=== PATIENT | female | born 1985 | race Caucasian/White ===

== ENCOUNTER 2017-10-31 18:18 | Inpatient (IN) ==
[2017-11-01] MEDS ORDERED: Acetaminophen 325 MG Tablet PO PRN (01:09)
[2017-11-01] MEDS ORDERED: Aluminum/Magnesium/Simethacone Susp 30 ML UDC PO PRN (01:09)
[2017-11-01 07:08] LABS: Alanine Aminotransferase 25 U/L (10-53); Albumin 3.5 g/dL (3.4-5.0); Anion Gap 14 meq/L (5-15); Aspartate Aminotransferase 23 U/L (15-37); Blood Urea Nitrogen 6 mg/dL (7-18); Calcium 9.3 mg/dL (8.5-10.1); Carbon Dioxide 22.5 meq/L (21.0-32.0); Chloride 103 meq/L (98-107); Cholesterol 162 mg/dL (120-200); Glomerular Filtration Rate 77 mL/min (>89); Glucose,Random 92 mg/dL (74-106); Potassium 3.6 meq/L (3.5-5.1); Sodium 139 meq/L (136-145); Triglycerides 114 mg/dL (42-150)
[2017-11-01 07:18] LABS: Alkaline Phosphatase 125 U/L (45-117); Chol/HDL Ratio 2.43 Ratio; HDL Cholesterol 66.4 mg/dL (40.0-60.0); LDL Cholesterol,Calculated 73 mg/dL (0-99); Total Protein 7.8 g/dL (6.4-8.2)
[2017-11-01 11:35] LABS: Hemoglobin A1c 4.9 % (4.3-6.0)
--- NOTE | 2017-11-01 13:45 | P.HPPSY ---
Provisional Diagnosis Admission Date: October 31, 2017 23:50 [place] I.: Schizophrenia Competence Certification of Person's Competence To Provide Express and Informed Consent I have personally examined Navin Macias, a person being served at [facility] on, November 01, 2017 1344. Express and informed consent means consent voluntarily given in writing, by a competent person, after sufficient explanation and disclosure of the subject matter involved to enable the person to make a knowing and willful decision without any element of force, fraud, deceit, duress, or other form of constraint or coercion. This person is 18 years of age or older, is not now known to be incompetent to consent to treatment with a guardian advocate, and does not have a health care surrogate or proxy currently making medical treatment decisions. I have found this person to be one of the following: [xxx] Competent to provide express and informed consent, as defined above, for voluntary admission to this facility and is competent to provide express and informed consent for treatment. He/she has the consistent capacity to make well reasoned, willful, and knowing decisions concerning his or her medical or mental health treatment. The person fully and consistently understands the purpose of the admission for examination/placement and is fully capable of personally exercising all rights assured under [place] [] Incompetent to provide express and informed consent to voluntary admission, and this is incompetent to provide express and informed consent to treatment. The person must be transferred to involuntary status and a petition for a guardian advocate filed with the Circuit Court. [] Refusing to provide express and informed consent to voluntary admission but is competent to provide express and informed consent for treatment. The person must be discharged or transferred to involuntary status. Form shall be completed within 24 hours of a person's arrival at the receiving facility and filed in the clinical record of each person: 1. Admitted on a voluntary basis 2. Permitted to provide express and informed consent to his/her own treatment 3. Allowed to transfer from involuntary to voluntary status 4. Prior to permitting a person to consent to his or her own treatment after having been previously found incompetent to consent to treatment. History of Present Illness Capacity: Has capacity Chief Complaint: Juan act for suicide ideations and auditory hallucinations History of Present Illness: Patient is a 32-year-old woman, single, domiciled with parents, employed part-time, with past psychiatric history of schizophrenia, no prior psychiatric admissions as per patient, no prior suicide attempts or self injurious behavior, with no past medical history or substance use history who was brought in under Juan Act from hospital in [place] for auditory hallucinations for several weeks, noncompliance with medications, suicidal ideation and threats to parents with violence which patient was admitted to the inpatient psychiatry unit for further evaluation and management. Patient was found sitting day room, calm and cooperative, interviewed with nurse. 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 She states that recently the PROMOTIONAL ADVERTISING ASSISTANT at her clinic had reduced the dose to 400mg because she was "fearful" and had a "fear episode" for the past couple of days. She did not explain the fear but that she just felt fear in general, last being yesterday. She reprots that she had not had any change in sleep, energy, concentration, appetite and that her mood had been "ok" but reports AH commanding her to "slam the door" which she last reported two days ago. she denies any VH or delusions at this time. Family psychiatric history: deneis Past psychiatric history: previous psychiatric diagnosis of schizophrenia, denies prior psychiatric admissions, no prior suicide attempts or self injurious behavior. Reports outpatient psychiatrist, Dr. Ballesteros (since 2013), prior medication trials: Rixulti, Seroquel, Risperdal. Substance use history: denies Past medical history: denies Allergies: benadryl Social history: single, no children, domiciled with parents, no service , no access to firearms, no legal history. Collateral: Patient's father, Edwin Macias ([phone]) was contacted and reported that the patient had been on 800mg of Seroquel for some time and believes that the patient had stopped her medication on her own for several days and had "lost it". He states that the patient was noted to be very afraid , getting up from lying down to do jumping jacks, wanted to leave the house and was noted to be "hearing voices saying 'no I don't want to kill myself or my parents'" talking to her self. Treatment plan was reviewed. - Inpatient Certification I certify that the inpatient services were ordered in accordance with Medicare regulations governing the order. This includes certification that hospital inpatient services are reasonable and necessary and in the case of services not specified as inpatient-only under 42 CFR 419.22(n), that they are appropriately provided as inpatient services in accordance to with the 2-midnight benchmark under 43 CFR 412.3(e) I certify that inpatient psychiatric hospital services are medically necessary. Evaluation and treatment and/or diagnostic testing are expected to improve the patient's condition. The patient needs on a daily basis, active treatment furnished directly by or requiring the supervision of inpatient psychiatric facility personnel. Plans for Post Hospital Care: Home Review of Systems All other systems reviewed negative except as stated in HPI PMFSH - History History Provided By: Patient, Family Member - Tobacco History Second Hand Smoke Exposure: No Smoking Status: Never smoker - Alcohol History How Often Do You Have a Drink Containing Alcohol: Never - Substance Use History Substance History: No History of Abuse - Travel History Recent Travel in the [place] Within the Last 8 Weeks: No Recent Travel Out of the Country Within the Last 8 Weeks: No Quality Measures - Substance Abuse History Drug or alcohol use in the past 12 months: denies - Patient Strengths Patient's strengths (minimum of 2): verbal and communicative Medications and Allergies Active Medications: Active Medications Acetaminophen (Tylenol) 650 mg PO Q4H PRN PRN Reason: Pain 1-5 or Temp >101F Al Hydrox/Mg Hydrox/Simethicone (Mag-Al Plus Susp Liq) 30 ml PO Q6H PRN PRN Reason: DYSPEPSIA Al Hydroxide/Mg Hydroxide (Milk Of Magnesia Liq) 30 ml PO Q12H PRN PRN Reason: Mild Constipation Lorazepam (Ativan) 1 mg PO Q6H PRN PRN Reason: SEE LABEL COMMENTS Lorazepam (Ativan Inj) 1 mg IM Q6H PRN PRN Reason: SEE LABEL COMMENTS Nicotine (Habitrol 21 Mg Patch.24 Hr) 1 patch T-DERMAL DAILY ROME Patch Removal (Remove Old Patch) 1 each T-DERMAL HS ROME Quetiapine Fumarate (Seroquel) 350 mg PO HS ROME Risperidone (Risperdal) 1 mg PO BID ROME Trazodone HCl (Desyrel) 50 mg PO HS PRN PRN Reason: INSOMNIA Allergies Allergy/AdvReac Type Severity Reaction Status Date / Time diphenhydramine AdvReac Mild SENSITIVITY Verified 11/01/17 00:29 Home Medications Medication Instructions Recorded Confirmed Type quetiapine [Seroquel] 400 mg PO DAILY 11/01/17 11/01/17 History risperidone [Risperdal] 0.5 mg PO DAILY 11/01/17 11/01/17 History Results - Labs CBC & Chem 7: 11/01/17 05:30 Labs: Laboratory Results - last 24 hr 11/01/17 11/01/17 05:30 05:30 Sodium 139 Potassium 3.6 Chloride 103 Carbon Dioxide 22.5 Anion Gap 14 BUN 6 L Creatinine 0.85 Estimated GFR 77 L Random Glucose 92 Hemoglobin A1c 4.9 Calcium 9.3 Total Bilirubin 0.4 Direct Bilirubin 0.1 Indirect Bilirubin 0.3 AST 23 ALT 25 Alkaline Phosphatase 125 H Total Protein 7.8 Albumin 3.5 Triglycerides 114 Cholesterol 162 LDL Cholesterol, Calc 73 HDL Cholesterol 66.4 H Cholesterol/HDL Ratio 2.43 TSH 3.390 Exam Vital signs: Vital Signs 11/01/17 00:30 11/01/17 05:36 Temperature 97.8 F 98.0 F Pulse Rate 100 H 120 H Respiratory Rate 17 16 Blood Pressure 168/89 H 137/77 Pulse Oximetry 98 99 Intake & Output 10/31/17 11/01/17 11/01/17 18:59 06:59 18:59 Weight 65 kg Narrative: Patient not noted to be in acute distress, no gross motor abnormalities, no tremors or EPS, no noted psychomotor retardation or agitation. Mental Status Examination Appearance: Appropriate Consciousness: Alert Orientation: x4 Motor Activity: Normal gait Speech: Unremarkable Language: Adequate Fund of Knowledge: Inadequate Attention and Concentration: Adequate Memory: Unremarkable Mood: Good Affect: Blunt Thought Process & Associations: Linear Thought Content: Hallucinations Hallucination Type: Auditory Delusion Type: Paranoid Suicidal Ideation: No Suicidal Plan: No Suicidal Intention: No Homicidal Ideation: No Homicidal Plan: No Homicidal Intention: No Insight: Fair Judgment: Impulsive Assessment and Plan - Assessment (1) Schizophrenia Code(s): F20.9 - Schizophrenia, unspecified Status: Acute - Plan Plan: Estimated LOS: [7-10] days Patient is a 32-year-old woman, single, domiciled with parents, employed part-time, with past psychiatric history of schizophrenia, no prior psychiatric admissions as per patient, no prior suicide attempts or self injurious behavior, with no past medical history or substance use history who was brought in under Juan Act from hospital in [place] for auditory hallucinations for several weeks, noncompliance with medications, suicidal ideation and threats to parents with violence which patient was admitted to the inpatient psychiatry unit for inpatient stabilization. Patient will be admitted under voluntary admission, has capacity to consent for treatment. Patient will continue quetiapine 350mg PO HS with plan to taper off and cross titrate with risperidone 1mg PO BID with upward titration as needed for psychosis. Monitor mood and behavior. Discharge planning in progress. Justification for Continued Inpatient Stay: At risk for further decompensation if at lower level of care
[2017-11-01] MEDS ORDERED: QUEtiapine 25 MG Tablet PO SCH (21:00)
--- NOTE | 2017-11-01 21:47 | ECG ---
Date Performed: 11/01/2017 Time Performed: 06:40:11 PTAGE: 32 years EKG: Sinus rhythm WITH SHORT CT INTERVAL BORDERLINE ECG NO PREVIOUS TRACING DOCTOR: Aleyda Blankenship Interpretating Date/Time 11/01/2017 21:46:21
[2017-11-02] MEDS: LORazepam 1 MG Tablet PO PRN (13:02)
--- NOTE | 2017-11-02 17:11 | P.PNPSY ---
Subjective Chief Complaint: Juan act for suicide ideations and auditory hallucinations Remarks: Patient seen for follow-up, chart reviewed. Discussion nursing staff reported the patient was noted to be talking to self in the room after being upset that she was not able to be moved to a lower acuity unit at this time. Patient appeared frightened and threw water on a nurse but did take medications last evening. Patient was noted to be internally preoccupied and responding to internal stimuli in the room prior to interview. Patient was also noted to have some decrease movement of her head, robotic-like when turning. Patient was also noted to be internally preoccupied during interview with thought blocking. Patient reports feeling "good" stating that she had visited with her parents last evening which she states "what good". Patient reports having slept well, continues to endorse auditory hallucinations commanding her to masturbate in bed or to give a case to medical student who was present during interview. Patient denying visual disturbances denying paranoid ideation reports eating and drinking well. Discussion with nursing staff later in the day reported the patient had been given Ativan due to increased activity which patient was running up and down the hallway of the units, attempted to remove her pajama pants and had to be redirected and moved to a camera room to be watched closely. Patient's recent vitals have shown slightly elevated blood pressure with tachycardia. Review of Systems All other systems reviewed negative except as stated in HPI Mental Status Examination Appearance: Appropriate Consciousness: Alert Orientation: x4 Motor Activity: Normal gait Speech: Unremarkable Language: Adequate Fund of Knowledge: Inadequate Attention and Concentration: Adequate Memory: Unremarkable Mood: Good Affect: Blunt Thought Process & Associations: Linear Thought Content: Hallucinations Hallucination Type: Auditory Delusion Type: Paranoid Suicidal Ideation: No Suicidal Plan: No Suicidal Intention: No Homicidal Ideation: No Homicidal Plan: No Homicidal Intention: No Insight: Fair Judgment: Impulsive Assessment and Plan - Assessment (1) Schizophrenia Code(s): F20.9 - Schizophrenia, unspecified Status: Acute - Plan Plan: Patient at this time appears internally preoccupied, responding to internal stimuli, paranoid, and delusional. We will increase risperidone to 1 mg p.o. a.m./2 mg p.o. at bedtime and continue to down titrate quetiapine to 300 mg at bedtime. We will add benztropine 0.5 mg p.o. twice daily due to suspected EPS earlier today although not no longer noted to be moving rigidly as this morning. We will continue to monitor vitals and continue to be vigilant of possibility of NMS as patient's vitals have shown tachycardia and elevated blood pressure but has not been noted to be rigid later in the afternoon, no hypothermia no diaphoresis or urinary incontinence noted and respiratory rate within normal range. We will order repeat labs of CBC, BMP, CK level, UA pending. We will continue to monitor mood and behavior. Discharge planning in progress. Justification for Continued Inpatient Stay: At risk of further decompensation a lower level of care.
[2017-11-02 17:43] LABS: Baso % (Auto) 0.4 % (0.0-2.0); Eos # (Auto) 0.1 th/mm3 (0.0-0.4); Eos % (Auto) 0.9 % (0.0-4.0); Hematocrit 38.5 % (35.0-46.0); Hemoglobin 13.2 gm/dL (11.6-15.3); Lymph # (Auto) 1.6 th/mm3 (1.0-4.8); Lymph % (Auto) 18.8 % (9.0-44.0); Mean Corpuscular HGB Conc 34.2 % (32.0-36.0); Mean Corpuscular Hemoglobin 30.4 pg (27.0-34.0); Mean Corpuscular Volume 88.7 fL (80.0-100.0); Mean Platelet Volume 7.1 fL (7.0-11.0); Mono # (Auto) 0.7 th/mm3 (0.0-0.9); Mono % (Auto) 7.9 % (0.0-8.0); Neut # (Auto) 6.1 th/mm3 (1.8-7.7); Platelet Count 334 th/mm3 (150-450); Red Blood Count 4.33 mil/mm3 (4.00-5.30); Red Cell Distribution Width 12.8 % (11.6-17.2); White Blood Count 8.4 th/mm3 (4.0-11.0)
[2017-11-02 17:51] LABS: Calcium 9.1 mg/dL (8.5-10.1); Potassium 3.4 meq/L (3.5-5.1)
--- NOTE | 2017-11-02 17:52 | ECG ---
Date Performed: 11/02/2017 Time Performed: 17:41:57 PTAGE: 32 years EKG: SINUS TACHYCARDIA WITH SHORT [place] INTERVAL ABNORMAL RHYTHM ECG No significant change from trav or electrocardiogram. PREVIOUS TRACING : 11/01/2017 06.40 DOCTOR: Claus Loyola Interpretating Date/Time 11/02/2017 17:50:31
[2017-11-02 18:16] LABS: CKMB Percent 0.4 % (0.0-4.0); Creatine Kinase MB 1.1 ng/mL (0.5-3.6)
[2017-11-02 22:36] LABS: Hemoglobin A1c 4.9 % (4.3-6.0)
[2017-11-03] MEDS: LORazepam 1 MG Tablet PO PRN (08:53)
--- NOTE | 2017-11-03 17:05 | P.PNPSY ---
Subjective Chief Complaint: Juan act for suicide ideations and auditory hallucinations Remarks: Patient seen for follow-up, chart reviewed. Discussion nursing staff reported the patient continues with disorganized behavior and currently in camera room to monitor closely. Patient was found standing in room staring outside the window stating that she was just looking at the meet. Patient noted to be internally preoccupied and thought blocking throughout interview. Patient stated that she slept well, denying any perceptional services although noted to be responding to internal stimuli. When asked about her behavior yesterday which patient was running up and down the halls and disorganized behavior patient states that she was feeling "scared" of a general fear but did not specify. She states having been visited by parents which was very short visit as she states "was not saying the right things". Patient denies any physical complaints at this time reports tolerating medications well. Review of Systems All other systems reviewed negative except as stated in HPI Mental Status Examination Appearance: Appropriate Consciousness: Alert Orientation: x4 Motor Activity: Normal gait Speech: Unremarkable Language: Adequate Fund of Knowledge: Inadequate Attention and Concentration: Adequate Memory: Unremarkable Mood: Good Affect: Blunt Thought Process & Associations: Linear Thought Content: Hallucinations Hallucination Type: Auditory Delusion Type: Paranoid Suicidal Ideation: No Suicidal Plan: No Suicidal Intention: No Homicidal Ideation: No Homicidal Plan: No Homicidal Intention: No Insight: Fair Judgment: Impulsive Assessment and Plan - Assessment (1) Schizophrenia Code(s): F20.9 - Schizophrenia, unspecified Status: Acute - Plan Plan: Patient this time continues with acute psychosis, responding to internal stimuli , thought blocking, although denies any auditory hallucinations noted to be internally preoccupied. We will continue to up titrate risperidone and to decrease quetiapine in cross titration. Continue to monitor mood and behavior. Discharge planning in progress. Justification for Continued Inpatient Stay: At risk for further decompensation if at lower level of care
[2017-11-03] MEDS: QUEtiapine 100 MG Tablet PO SCH (21:01)
--- NOTE | 2017-11-04 13:00 | P.PNPSY ---
Subjective Chief Complaint: Juan act for suicide ideations and auditory hallucinations Remarks: Pt seen and discussed with staff. She remains psychotic and disorganized. She has been pleasant but hygiene is poor. She is compliant with medications. Mental Status Examination Appearance: Appropriate Consciousness: Alert Orientation: x4 Motor Activity: Normal gait Speech: Unremarkable Language: Adequate Fund of Knowledge: Inadequate Attention and Concentration: Adequate Memory: Unremarkable Mood: Good Affect: Blunt Thought Process & Associations: Linear Thought Content: Hallucinations Hallucination Type: Auditory Delusion Type: Paranoid Suicidal Ideation: No Suicidal Plan: No Suicidal Intention: No Homicidal Ideation: No Homicidal Plan: No Homicidal Intention: No Insight: Poor Judgment: Impulsive Assessment and Plan - Assessment (1) Schizophrenia Code(s): F20.9 - Schizophrenia, unspecified Status: Acute - Plan Plan: Continue current tx plan Justification for Continued Inpatient Stay: impairments in reality testing
[2017-11-04] MEDS: QUEtiapine 100 MG Tablet PO SCH (21:09)
[2017-11-04] MEDS: LORazepam 1 MG Tablet PO PRN (22:16)
[2017-11-05] MEDS: LORazepam 1 MG Tablet PO PRN (10:41)
--- NOTE | 2017-11-05 14:07 | P.PNPSY ---
Subjective Chief Complaint: Juan act for suicide ideations and auditory hallucinations Remarks: Pt seen and discussed with staff. She continues to exhibit bizarre disorganized behavior. This morning,she sat in dayroom, yelling "Water,Water, Water!" When staff attended to pt, she was noted to have a full glass of water already. Eye contact is poor and she often conducts interviews with eyes closed. She is compliant with medications Mental Status Examination Appearance: Appropriate Consciousness: Alert Orientation: x4 Motor Activity: Normal gait Speech: Unremarkable Language: Adequate Fund of Knowledge: Inadequate Attention and Concentration: Adequate Memory: Unremarkable Mood: Good Affect: Blunt Thought Process & Associations: Linear Thought Content: Hallucinations Hallucination Type: Auditory Delusion Type: Paranoid Suicidal Ideation: No Suicidal Plan: No Suicidal Intention: No Homicidal Ideation: No Homicidal Plan: No Homicidal Intention: No Insight: Poor Judgment: Impulsive Assessment and Plan - Assessment (1) Schizophrenia Code(s): F20.9 - Schizophrenia, unspecified Status: Acute - Plan Plan: Continue current tx plan Justification for Continued Inpatient Stay: impairments in reality testing
[2017-11-05] MEDS: traZODone 50 MG Tablet PO PRN (21:16)
[2017-11-05] MEDS: QUEtiapine 100 MG Tablet PO SCH (21:17)
--- NOTE | 2017-11-06 16:37 | P.PNPSY ---
Subjective Chief Complaint: Juan act for suicide ideations and auditory hallucinations Remarks: Patient seen for follow-up, chart reviewed. Discussion with nursing staff reported that the patient continues to be noted to be talking to self, no behavioral disturbances patient denying any auditory or visual hallucinations. Patient was found sitting in day room and noted to be calm and cooperative with interview, patient states that she is feeling "great" reports sleeping well, having good appetite, and attending groups. Patient reports having visited by family yesterday which she states went well. Patient denying any auditory or visual hallucinations but noted to be having some disorganized behavior in day room prior to interview. Patient states that she is no longer feel scared she did once in the beginning feels that she is getting better. Review of Systems All other systems reviewed negative except as stated in HPI Mental Status Examination Appearance: Appropriate Consciousness: Alert Orientation: x4 Motor Activity: Normal gait Speech: Unremarkable Language: Adequate Fund of Knowledge: Inadequate Attention and Concentration: Adequate Memory: Unremarkable Mood: Good Affect: Blunt Thought Process & Associations: Linear Thought Content: Hallucinations (Denies although noted to be internally preoccupied), Thought blocking Hallucination Type: Auditory (Denies but noted to be responding to internal stimuli at times) Delusion Type: Paranoid (Lessening) Suicidal Ideation: No Suicidal Plan: No Suicidal Intention: No Homicidal Ideation: No Homicidal Plan: No Homicidal Intention: No Insight: Poor Judgment: Impulsive Assessment and Plan - Assessment (1) Schizophrenia Code(s): F20.9 - Schizophrenia, unspecified Status: Acute - Plan Plan: Patient this time continues to have some disorganized behavior, denying any auditory or visual hallucinations been noted to be internally preoccupied at times. We will continue to cross titrate Seroquel with risperidone but Seroquel will now be 200 mg p.o. at bedtime and risperidone to 2 mg p.o. twice daily. Continue to monitor mood and behavior. Discharge planning in progress. Justification for Continued Inpatient Stay: At risk for further decompensation if at lower level of care
[2017-11-06] MEDS ORDERED: QUEtiapine 100 MG Tablet PO SCH (21:00)
[2017-11-06] MEDS: LORazepam 1 MG Tablet PO PRN (21:14)
[2017-11-07] MEDS ORDERED: QUEtiapine 100 MG Tablet PO SCH (10:17)
--- NOTE | 2017-11-07 14:33 | P.PNPSY ---
Subjective Chief Complaint: Ujan act for suicide ideations and auditory hallucinations Remarks: Patient seen for follow-up, chart reviewed. Discussion with nursing staff reported that the patient did not sleep well last evening, continues to be internally preoccupied noted to be standing with disorganized movements and talking to self. Patient was found sitting in day room watching television, interviewed in room with nurse and medical student. Patient states she been feeling "good" reports having visited by family which she states went well. Patient denies any perceptional services but did report talking to herself stating "those are not my thoughts, those are not my feelings" but denies any auditory hallucinations. Patient states she is no longer feeling scared that she was when she came to the unit and is request to be transferred to a 2600 unit stay that she would feel more comfortable there. Review of Systems All other systems reviewed negative except as stated in HPI Mental Status Examination Appearance: Appropriate Consciousness: Alert Orientation: x4 Motor Activity: Normal gait Speech: Unremarkable Language: Adequate Fund of Knowledge: Inadequate Attention and Concentration: Adequate Memory: Unremarkable Mood: Good Affect: Blunt Thought Process & Associations: Linear Thought Content: Hallucinations (Denies although noted to be internally preoccupied), Thought blocking Hallucination Type: Auditory (Denies but noted to be responding to internal stimuli at times) Delusion Type: Paranoid (Lessening) Suicidal Ideation: No Suicidal Plan: No Suicidal Intention: No Homicidal Ideation: No Homicidal Plan: No Homicidal Intention: No Insight: Poor Judgment: Impulsive Assessment and Plan - Assessment (1) Schizophrenia Code(s): F20.9 - Schizophrenia, unspecified Status: Acute - Plan Plan: Patient this time continues to be noted to have some disorganized behavior on the unit, patient responding to internal stimuli and talking to self at times but no behavioral disturbances or agitation. We will continue to titrate Risperdal to 2 mg a.m./3 mg at bedtime, and down titrate Seroquel to 150 mg at bedtime today. Continue to monitor mood and behavior. Continue rest of medications. Discharge planning in progress. Justification for Continued Inpatient Stay: At risk for further decompensation if at lower level of care
[2017-11-07] MEDS: LORazepam 1 MG Tablet PO PRN (15:16)
[2017-11-07] MEDS: traZODone 50 MG Tablet PO PRN (21:21)
[2017-11-08] MEDS ORDERED: QUEtiapine 100 MG Tablet PO SCH (09:25)
[2017-11-08] MEDS: LORazepam 1 MG Tablet PO PRN (17:19)
--- NOTE | 2017-11-08 17:33 | P.PNPSY ---
Subjective Chief Complaint: Juan act for suicide ideations and auditory hallucinations Remarks: Patient seen for follow, chart reviewed. Discussion nursing staff reported patient eating adequately, taking medications and had difficulty sleep last evening. Patient was found lying hospital bed noted B, cooperative, interview with nurse. Patient states that she is feeling "really good" and was happy that she had moved to a lower acuity unit. Patient ports eating and drinking well with no difficulty with sleep. Patient denies any auditory hallucinations and states that she last experienced this 2 days ago. Patient reports having visited by her parents who her perspective feels that the see that she is improving. Patient denies any adverse drug reactions. Patient noted with less thought blocking during interview and improved eye contact today. Review of Systems All other systems reviewed negative except as stated in HPI Mental Status Examination Appearance: Appropriate Consciousness: Alert Orientation: x4 Motor Activity: Normal gait Speech: Unremarkable Language: Adequate Fund of Knowledge: Inadequate Attention and Concentration: Adequate Memory: Unremarkable Mood: Good Affect: Blunt (Lessening) Thought Process & Associations: Linear Thought Content: Thought blocking (Lessening) Hallucination Type: Auditory (Denies today) Delusion Type: Paranoid (Lessening) Suicidal Ideation: No Suicidal Plan: No Suicidal Intention: No Homicidal Ideation: No Homicidal Plan: No Homicidal Intention: No Insight: Poor (Improving) Judgment: Impulsive Assessment and Plan - Assessment (1) Schizophrenia Code(s): F20.9 - Schizophrenia, unspecified Status: Acute - Plan Plan: Patient noted to have improvement in behavior, less disorganized behavior noted on the unit, improve eye contact, less thought blocking and patient denying any auditory hallucinations at this time. We will continue to titrate quetiapine to 100 mg p.o. at bedtime tonight with continued titration and patient will continue risperidone 2 mg p.o. a.m./3 mg p.o. at bedtime for psychosis. Continue rest of medications. Continue to monitor mood and behavior. Discharge planning in progress. Justification for Continued Inpatient Stay: At risk of further decompensation at lower level of care.
[2017-11-09] MEDS: LORazepam 1 MG Tablet PO PRN ×2 (09:42→20:21)
[2017-11-09] MEDS ORDERED: QUEtiapine 25 MG Tablet PO SCH (15:04)
--- NOTE | 2017-11-09 15:09 | P.PNPSY ---
Subjective Chief Complaint: Juan act for suicide ideations and auditory hallucinations Remarks: Patient seen for follow-up, chart reviewed. Discussion nursing staff reported the patient has been anxious this morning, compliant with medications. Patient was found sitting in hospital bed noted B, cooperative. Patient states that she had been feeling "great", states she has been feeling better in this that she has no longer feelings of being scared and that "voices are gone" and that she had met with her parents less evening which she perceives that they feel she is doing much better. Patient denying perceptual services or delusions at this time. Review of Systems All other systems reviewed negative except as stated in HPI Mental Status Examination Appearance: Appropriate Consciousness: Alert Orientation: x4 Motor Activity: Normal gait Speech: Unremarkable Language: Adequate Fund of Knowledge: Inadequate Attention and Concentration: Adequate Memory: Unremarkable Mood: Good Affect: Blunt (Lessening) Thought Process & Associations: Intact, Linear Thought Content: Appropriate Hallucination Type: Auditory (Denies today) Suicidal Ideation: No Suicidal Plan: No Suicidal Intention: No Homicidal Ideation: No Homicidal Plan: No Homicidal Intention: No Insight: Fair (Improving) Judgment: Impulsive Assessment and Plan - Assessment (1) Schizophrenia Code(s): F20.9 - Schizophrenia, unspecified Status: Acute - Plan Plan: Patient this time noted to have improvement in affect, no longer noted to be thought blocking, organized thought process, no longer endorsing any perceptional disturbances or delusions. Consent was obtained via telephone with patient's healthcare surrogate which is her father for Risperdal Consta 50 mg IM q14 days which patient will receive first injection today. Continue rest of medications. Continue to monitor mood and behavior. We will continue to decrease quetiapine to 50 mg p.o. at bedtime tonight and discontinue after this last dose. Discharge planning in progress. Patient likely for discharge tomorrow. Justification for Continued Inpatient Stay: At risk of further decompensation a lower level of care. Request Healthcare Surrogate/Guardian Advocate?: Yes
[2017-11-09] MEDS ORDERED: RISPERIDONE 50 MG/2 ML IM SCH (17:00)
--- NOTE | 2017-11-10 13:12 | P.DSPSY ---
Psychiatry Discharge Summary Inpatient Psychiatric care?: Yes Advance Directives: No Mental Health Advance Directive: No Health Care Proxy: No - Admission Admission Date: October 31, 2017 23:50 - Admission Diagnosis (1) Schizophrenia Code(s): F20.9 - Schizophrenia, unspecified Brief History: Patient is a 32-year-old woman, single, domiciled with parents, employed part-time, with past psychiatric history of schizophrenia, no prior psychiatric admissions as per patient, no prior suicide attempts or self injurious behavior, with no past medical history or substance use history who was brought in under Juan Act from hospital in [place] for auditory hallucinations for several weeks, noncompliance with medications, suicidal ideation and threats to parents with violence which patient was admitted to the inpatient psychiatry unit for further evaluation and management. Patient was found sitting day room, calm and cooperative, interviewed with nurse. 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 She states that recently the CRANE ASSEMBLER at her clinic had reduced the dose to 400mg because she was "fearful" and had a "fear episode" for the past couple of days. She did not explain the fear but that she just felt fear in general, last being yesterday. She reprots that she had not had any change in sleep, energy, concentration, appetite and that her mood had been "ok" but reports AH commanding her to "slam the door" which she last reported two days ago. she denies any VH or delusions at this time. Family psychiatric history: deneis Past psychiatric history: previous psychiatric diagnosis of schizophrenia, denies prior psychiatric admissions, no prior suicide attempts or self injurious behavior. Reports outpatient psychiatrist, Dr. Ballesteros (since 2013), prior medication trials: Rixulti, Seroquel, Risperdal. Substance use history: denies Past medical history: denies Allergies: benadryl Social history: single, no children, domiciled with parents, no service , no access to firearms, no legal history. Collateral: Patient's father, Edwin Macias ([phone]) was contacted and reported that the patient had been on 800mg of Seroquel for some time and believes that the patient had stopped her medication on her own for several days and had "lost it". He states that the patient was noted to be very afraid , getting up from lying down to do jumping jacks, wanted to leave the house and was noted to be "hearing voices saying 'no I don't want to kill myself or my parents'" talking to her self. Treatment plan was reviewed. Tobacco Use In Past 30 Days: No How Often Do You Have a Drink Containing Alcohol: Never Hospital Course: Patient is a 32-year-old woman, single, domiciled with parents, employed part-time, with past psychiatric history of schizophrenia, no prior psychiatric admissions as per patient, no prior suicide attempts or self injurious behavior, with no past medical history or substance use history who was brought in under Juan Act from hospital in [place] for auditory hallucinations for several weeks, noncompliance with medications, suicidal ideation and threats to parents with violence which patient was admitted to the inpatient psychiatry unit for further evaluation and management. Patient was continued on quetiapine with cross taper with risperidone which patient was titrated to 2mg am/3mg HS along with medications for chronic medical issues and tolerated medications well with minimal side effects. Patient was admitted to a locked, inpatient psychiatric unit. Appropriate precautions were in place throughout patient's hospital stay. Patient was seen and examined on the unit by psychiatry. Psychotropic medications were adjusted. There was no evidence of any suicidality or homicidality on the inpatient unit. Patient's psychotic symptoms improved with the benefit of psychopharmacologic treatment. Patient was put on Risperdal Consta 50mg IM x 1 and would need to continue every 14 days. Counselor has arranged for follow up appointments for continuity of care. On the day of discharge: Patient seen and examined; chart reviewed. Case discussed with nurse and counselor. No behavioral issues overnight. On my examination today, the patient is to be discharged to parents home. She denies any suicidal or homicidal ideation, intent or plan on direct questioning and contracts for safety. I can elicit no mood symptoms. He denies any audiovisual hallucinations. No delusional material verbalized today. Patient denies any side effects from medications and has a good understanding of medication regimen. No physical complaints. Suicide and violence risk assessment on day of discharge both suggest lower imminent risk, and the patient 's level of function is adequate for planned level of outpatient care. Patient has maximized benefit from this inpatient psychiatric hospital stay and will be discharged with follow-up as arranged by counselor. Patient advised to return to psychiatric emergency room for any concerning psychiatric symptoms. Patient agrees with plan. - Discharge Discharge Date: 11/10/17 - Discharge Diagnosis (1) Schizophrenia Code(s): F20.9 - Schizophrenia, unspecified Status: Acute Discharge Disposition: Home - Discharge Instructions Discharge Diet: Regular Diet Activities You Can Perform: Regular- No Restrictions - Discharge Time > 30 minutes Mental Status Examination Appearance: Appropriate Consciousness: Alert Orientation: x4 Motor Activity: Normal gait Speech: Unremarkable Language: Adequate Fund of Knowledge: Inadequate Attention and Concentration: Adequate Memory: Unremarkable Mood: Appropriate, Good Affect: Appropriate Thought Process & Associations: Intact, Goal directed, Linear Thought Content: Appropriate Hallucination Type: None Delusion Type: None Suicidal Ideation: No Suicidal Plan: No Suicidal Intention: No Homicidal Ideation: No Homicidal Plan: No Homicidal Intention: No Insight: Adequate Judgment: Adequate Discharge/Advance Care Plan - Results Vital Signs: Last Vital Signs Temp 98 F 11/09/17 05:10 Pulse 93 H 11/09/17 05:10 Resp 16 11/09/17 05:10 BP 128/54 L 11/09/17 05:10 Pulse Ox 94 L 11/09/17 05:10 Lab Results: Laboratory Results Hemoglobin A1c 4.9 % (4.3-6.0) 11/02/17 17:20 Triglycerides 114 mg/dL (42-150) 11/01/17 05:30 Cholesterol 162 mg/dL (120-200) 11/01/17 05:30 LDL Cholesterol, Calc 73 mg/dL (0-99) 11/01/17 05:30 HDL Cholesterol 66.4 mg/dL (40.0-60.0) H 11/01/17 05:30 TSH 3.390 uIU/mL (0.358-3.740) 11/01/17 05:30 Summary of Procedures: none Pending Results: None - Medications Number of antipsychotic medications at discharge: 1 - Discharge Care Plan Goals to Promote Your Health: * To prevent worsening of your condition and complications * To maintain your health at the optimal level Directions to Meet Your Goals: Take your medications as prescribed Follow your dietary instruction Follow activity as directed Keep your appointments as scheduled Take your immunizations and boosters as scheduled If your symptoms worsen call your PCP, if no PCP go to Urgent Care Center or Emergency Room For 21/11 questions related to your inpatient stay or results of tests pending at discharge, please contact Dr. Rodolfo Patterson MD at Smoking is Dangerous to Your Health. Avoid second hand smoking
== END 2017-11-10 11:00 | disposition home or self-care (01) ==
LOC: H270 23:50 → H260 11-07 13:20
PROVIDERS: ADMIT Student in an Organized Health Care Education/Training Program; ATTEND Student in an Organized Health Care Education/Training Program